=== PATIENT | female | born 1980 | race Caucasian/White ===

== ENCOUNTER 2022-08-17 05:00 | Emergency (ER) | payer OTHER ==
[~2022-08-17] VITALS: Ht 160 cm; Wt 70.3 kg
[2022-08-17 05:31] VITALS: BP 104/60
--- NOTE | 2022-08-17 05:34 | NUR ---
TO LOBBY A/W BED AMBULATORY
--- NOTE | 2022-08-17 06:38 | NUR ---
LABS DRAWN. PT TAKEN TO BED 12.
[2022-08-17 06:46] LABS: BASOPHILS # (AUTO) 0.1 K/uL (0.00-0.22); BASOPHILS % (AUTO) 1.3 % (0.0-2.0); EOSINOPHILS # (AUTO) 0.2 K/uL (0-0.4); EOSINOPHILS % (AUTO) 2.8 % (0.0-4.0); HEMATOCRIT 39.5 % (36-48); HEMOGLOBIN 13.6 g/dL (12.0-16.0); LYMPHOCYTES # (AUTO) 1.3 K/uL (2.5-16.5); LYMPHOCYTES % (AUTO) 21.2 % (20.5-51.1); MEAN CORPUSCULAR HEMOGLOBIN 33 pg (27-31); MEAN CORPUSCULAR HGB CONC 35 g/dL (33-37); MEAN CORPUSCULAR VOLUME 95.3 fL (80-94); MONOCYTES # (AUTO) 0.6 K/uL (0.8-1.0); MONOCYTES % (AUTO) 9.2 % (1.7-9.3); NEUTROPHILS % (AUTO) 65.5 % (42.2-75.2); PLATELET COUNT (AUTO) 268 K/uL (140-450); RED BLOOD CELL COUNT(AUTO) 4.14 MIL/uL (4.20-5.40); RED CELL DISTRIBUTION WIDTH 13.2 % (11.6-13.7); WHITE BLOOD COUNT (AUTO) 6.2 K/uL (4.8-10.8)
[2022-08-17 06:50] LABS: APPEARANCE,URINE CLEAR (CLEAR); BILIRUBIN,URINE NEGATIVE (NEGATIVE); BLOOD, URINE 3+ (NEGATIVE); COLOR,URINE YELLOW (YELLOW); LEUKOCYTE ESTERASE ,URINE 1+ (NEGATIVE); NITRITE, URINE NEGATIVE (NEGATIVE); UGLUCOSE NEGATIVE (NEGATIVE)
[2022-08-17 07:08] LABS: ALBUMIN 3.7 g/dL (3.4-5.0); ANION GAP 13.7 (8-16); CARBON DIOXIDE 26.1 mmol/L (21-32); POTASSIUM 3.8 mmol/L (3.5-5.1); TOTAL BILIRUBIN 0.4 mg/dL (0.0-1.0)
--- NOTE | 2022-08-17 07:20 | NUR ---
Assumed care from HANNAH Nolasco.
[2022-08-17 07:21] LABS: OTHER CASTS, URINE None Seen /LPF (None Seen)
--- NOTE | 2022-08-17 08:10 | NUR ---
Pt AOX4, able to make needs known. GCS15, no SOB. Denies N/V/D and pain at this time. Resp even and unlabored.
[2022-08-17] MEDS ORDERED: NITR100C7 PO (09:29)
[2022-08-17] MEDS ORDERED: IBUP-2213 PO (09:29)
[2022-08-17 10:37] VITALS: BP 128/74
--- NOTE | 2022-08-17 10:37 | NUR ---
Patient discharged with v/s stable. Written and verbal after care instructions given and explained with teachback. Patient alert, oriented and verbalized understanding of instructions. Ambulatory with steady gait. All questions addressed prior to discharge. ID band removed. Patient advised to follow up with PMD. Rx of macrobid/ibuprofen given. Patient educated on indication of medication including possible reaction and side effects. Opportunity to ask questions provided and answered.
== END 2022-08-17 10:37 | disposition home or self-care (01) ==
LOC: MED 05:00
DX: N39.0 Urinary tract infection, site not specified (principal)
CPT/HCPCS: 36415; 80053; 81001; 81025; 85025; 87086; 99284

== ENCOUNTER 2023-01-27 12:35 | Emergency (ER) | payer OTHER ==
[~2023-01-27] VITALS: Ht 157.5 cm; Wt 67.6 kg
[~2023-01-27 12:35] MED LIST: IBUP-2213 PO; NITR100C7 PO
[2023-01-27 13:00] VITALS: BP 105/59
[2023-01-27 13:23] VITALS: BP 125/73
--- NOTE | 2023-01-27 13:31 | NUR ---
Urine cup given for collection; patient to lobby
[2023-01-27 14:13] LABS: APPEARANCE,URINE CLEAR (CLEAR); BILIRUBIN,URINE NEGATIVE (NEGATIVE); BLOOD, URINE NEGATIVE (NEGATIVE); COLOR,URINE YELLOW (YELLOW); LEUKOCYTE ESTERASE ,URINE NEGATIVE (NEGATIVE); NITRITE, URINE NEGATIVE (NEGATIVE); PH,URINE 7.5 (5.0-9.0); UGLUCOSE NEGATIVE (NEGATIVE)
[2023-01-27] MEDS ORDERED: MORPHINE SULFATE 4 MG/ML SYR IVP ONE (15:15)
[2023-01-27] MEDS ORDERED: ONDANSETRON 4 MG/2 ML VIAL IVP ONE (15:15)
--- NOTE | 2023-01-27 15:37 | NUR ---
ASSUMED PATIENT CARE, NURSING ASSESSMENT COMPLETED.
[2023-01-27 15:42] LABS: BASOPHILS % (AUTO) 0.5 % (0.0-2.0); EOSINOPHILS # (AUTO) 0.3 K/uL (0-0.4); EOSINOPHILS % (AUTO) 4.1 % (0.0-4.0); HEMATOCRIT 33.2 % (36-48); HEMOGLOBIN 11.2 g/dL (12.0-16.0); LYMPHOCYTES # (AUTO) 1.3 K/uL (2.5-16.5); LYMPHOCYTES % (AUTO) 15.1 % (20.5-51.1); MEAN CORPUSCULAR HEMOGLOBIN 31 pg (27-31); MEAN CORPUSCULAR HGB CONC 34 g/dL (33-37); MEAN CORPUSCULAR VOLUME 93.1 fL (80-94); MONOCYTES # (AUTO) 0.6 K/uL (0.8-1.0); MONOCYTES % (AUTO) 7.4 % (1.7-9.3); NEUTROPHILS # (AUTO) 6.2 K/uL (1.8-7.7); NEUTROPHILS % (AUTO) 72.9 % (42.2-75.2); PLATELET COUNT (AUTO) 320 K/uL (140-450); RED BLOOD CELL COUNT(AUTO) 3.57 MIL/uL (4.20-5.40); RED CELL DISTRIBUTION WIDTH 12.4 % (11.6-13.7); WHITE BLOOD COUNT (AUTO) 8.5 K/uL (4.8-10.8)
[2023-01-27 16:02] LABS: ALBUMIN 3.7 g/dL (3.4-5.0); ANION GAP 12.1 (8-16); CARBON DIOXIDE 26.5 mmol/L (21-32); CREATININE 0.9 mg/dL (0.6-1.3); POTASSIUM 3.6 mmol/L (3.5-5.1); TOTAL BILIRUBIN 0.2 mg/dL (0.0-1.0)
--- NOTE | 2023-01-27 16:07 | NUR ---
PELVIC EXAM COMPLETED WITH CORRINE QUALITY COMPLIANCE COORDINATOR.
[2023-01-27] MEDS ORDERED: IBUP-2213 PO (17:06)
[2023-01-27] MEDS ORDERED: ONDA-188 PO (17:06)
[2023-01-27 17:16] VITALS: BP 115/70
--- NOTE | 2023-01-27 17:16 | NUR ---
Patient discharged with v/s stable. Written and verbal after care instructions given and explained. Patient alert, oriented and verbalized understanding of instructions. Ambulatory with steady gait. All questions addressed prior to discharge. ID band removed. Patient advised to follow up with PMD. Rx of MOTRIN, ZOFRAN given. Patient educated on indication of medication including possible reaction and side effects. Opportunity to ask questions provided and answered.
== END 2023-01-27 17:16 | disposition home or self-care (01) ==
LOC: MED 12:35
DX: N93.9 Abnormal uterine and vaginal bleeding, unspecified (principal); R10.2 Pelvic and perineal pain; Z79.899 Other long term (current) drug therapy; Z79.2 Long term (current) use of antibiotics; Z79.1 Long term (current) use of non-steroidal anti-inflammatories (NSAID)
CPT/HCPCS: 36415; 76830; 80053; 81003; 81025; 85025; 87210; 87491; 96374; 96375; 99285; J2270; J2405; Q0092

== ENCOUNTER 2023-05-03 16:20 | Emergency (ER) | payer OTHER ==
[~2023-05-03] VITALS: Ht 162.6 cm; Wt 65.8 kg
[~2023-05-03 16:20] MED LIST changes: +ONDA-188 PO
[2023-05-03 16:27] VITALS: BP 129/86
[2023-05-03] MEDS ORDERED: MORPHINE SULFATE 2 MG/ML SYR IVP PRN (17:05)
[2023-05-03] MEDS ORDERED: NACL 0.9% 1,000 ML IV ONE (17:05)
[2023-05-03 17:35] LABS: BASOPHILS # (AUTO) 0.1 K/uL (0.00-0.22); BASOPHILS % (AUTO) 1.2 % (0.0-2.0); EOSINOPHILS # (AUTO) 0.5 K/uL (0-0.4); EOSINOPHILS % (AUTO) 5.7 % (0.0-4.0); HEMATOCRIT 30.6 % (36-48); HEMOGLOBIN 9.8 g/dL (12.0-16.0); LYMPHOCYTES # (AUTO) 1.5 K/uL (2.5-16.5); LYMPHOCYTES % (AUTO) 18.7 % (20.5-51.1); MEAN CORPUSCULAR HEMOGLOBIN 24 pg (27-31); MEAN CORPUSCULAR HGB CONC 32 g/dL (33-37); MEAN CORPUSCULAR VOLUME 75.4 fL (80-94); MONOCYTES # (AUTO) 0.7 K/uL (0.8-1.0); MONOCYTES % (AUTO) 8.2 % (1.7-9.3); NEUTROPHILS # (AUTO) 5.3 K/uL (1.8-7.7); NEUTROPHILS % (AUTO) 66.2 % (42.2-75.2); PLATELET COUNT (AUTO) 469 K/uL (140-450); RED BLOOD CELL COUNT(AUTO) 4.06 MIL/uL (4.20-5.40); RED CELL DISTRIBUTION WIDTH 16.8 % (11.6-13.7)
[2023-05-03 17:55] LABS: ALBUMIN 3.6 g/dL (3.4-5.0); ANION GAP 13.8 (8-16); CARBON DIOXIDE 26.5 mmol/L (21-32); CREATININE 0.7 mg/dL (0.6-1.3); POTASSIUM 4.3 mmol/L (3.5-5.1); TOTAL BILIRUBIN 0.3 mg/dL (0.0-1.0)
[2023-05-03] MEDS ORDERED: POLY17PD46 PO (19:33)
[2023-05-03 20:00] VITALS: BP 114/65
[2023-05-03 20:00] LABS: APPEARANCE,URINE CLEAR (CLEAR); BILIRUBIN,URINE NEGATIVE (NEGATIVE); BLOOD, URINE 3+ (NEGATIVE); COLOR,URINE YELLOW (YELLOW); LEUKOCYTE ESTERASE ,URINE TRACE (NEGATIVE); NITRITE, URINE NEGATIVE (NEGATIVE); PH,URINE 8.5 (5.0-9.0); UGLUCOSE NEGATIVE (NEGATIVE)
--- NOTE | 2023-05-03 20:00 | NUR ---
Patient report received from Ran YOUNG. Patient comfortable and safe in bed. No complaints of pain or signs of distress. Patient being monitored at this time, connected to monitor. VS stable at this time.
[2023-05-03 20:21] LABS: RBC,URINE 11-20 (MOD) /HPF (0-5); RED BLOOD CELL CASTS,URINE 0-10 /LPF (None Seen)
[2023-05-03] MEDS ORDERED: AMOX-999 PO (20:33)
--- NOTE | 2023-05-03 20:46 | NUR ---
IV removed, catheter intact and site benign. Applied folded 4x4 gauze and tape to stop bleeding.
--- NOTE | 2023-05-03 20:49 | NUR ---
Patient discharged. Written and verbal after care instructions given and explained. Patient alert, oriented and verbalized understanding of instructions. Ambulatory with steady gait. All questions addressed prior to discharge. ID band removed. Patient advised to follow up with PMD. Rx of Augmentin 500-125 and Miralax given. Patient educated on indication of medication including possible reaction and side effects. Opportunity to ask questions provided and answered.
== END 2023-05-03 20:49 | disposition home or self-care (01) ==
LOC: MED 16:20
DX: R10.30 Lower abdominal pain, unspecified (principal); Z79.899 Other long term (current) drug therapy
CPT/HCPCS: 36415; 74177; 76856; 80053; 81001; 83690; 84703; 85025; 93976; 96361; 96374; 99285; J2270; J7030; Q0092; Q9967

== ENCOUNTER 2023-06-16 21:20 | Inpatient (IN) | payer OTHER ==
[~2023-06-16] VITALS: Ht 157.5 cm; Wt 62.6 kg
[~2023-06-16 21:20] MED LIST changes: +AMOX-999 PO; +POLY17PD46 PO
[2023-06-16 21:53] VITALS: BP 116/75; PULSE 83; RESP 16; TEMP 97.8; O2SAT 100
--- NOTE | 2023-06-16 21:53 | NUR ---
TO LOBBY A/W BED AMBULATORY
--- NOTE | 2023-06-16 21:59 | NUR ---
PATIENT PRESENTS TO ED WITH C/O VAGINAL BLEEDING FOR A FEW DAYS, THAT HAS RECENTLY GOTTEN WORSE. PT STATES SHE PASSED BLOOD CLOTS TODAY WHILE AT WORK. DENIES N/V/D; SKIN IS PINK/WARM/DRY; AAOX4 WITH EVEN AND STEADY GAIT; LUNGS CLEAR BL; HR EVEN AND REGULAR; PT DENIES ANY FEVER, CP, SOB, OR COUGH AT THIS TIME; PATIENT STATES PAIN OF 10/10 AT THIS TIME; DESCRIBES PAIN CRAMPING. VSS; PATIENT POSITIONED FOR COMFORT; HOB ELEVATED; BEDRAILS UP X2; BED DOWN. ER MD MADE AWARE OF PT STATUS.
[2023-06-16] MEDS ORDERED: KETOROLAC 15 MG/ML VIAL IVP ONE (22:25)
[2023-06-16] MEDS ORDERED: ONDANSETRON 4 MG/2 ML VIAL IVP ONE (22:25)
[2023-06-16] MEDS ORDERED: NACL 0.9% 1,000 ML IV ONE (22:25)
[2023-06-16] MEDS ORDERED: MORPHINE SULFATE 4 MG/ML SYR IVP ONE (22:25)
[2023-06-16 22:34] LABS: BASOPHILS # (AUTO) 0.1 K/uL (0.00-0.22); BASOPHILS % (AUTO) 1.1 % (0.0-2.0); EOSINOPHILS # (AUTO) 0.4 K/uL (0-0.4); EOSINOPHILS % (AUTO) 6.6 % (0.0-4.0); LYMPHOCYTES # (AUTO) 1.8 K/uL (2.5-16.5); LYMPHOCYTES % (AUTO) 28.1 % (20.5-51.1); MEAN CORPUSCULAR HEMOGLOBIN 23 pg (27-31); MEAN CORPUSCULAR HGB CONC 32 g/dL (33-37); MEAN CORPUSCULAR VOLUME 71.7 fL (80-94); MONOCYTES # (AUTO) 0.7 K/uL (0.8-1.0); MONOCYTES % (AUTO) 11.1 % (1.7-9.3); NEUTROPHILS # (AUTO) 3.4 K/uL (1.8-7.7); NEUTROPHILS % (AUTO) 53.1 % (42.2-75.2); PLATELET COUNT (AUTO) 380 K/uL (140-450); RED BLOOD CELL COUNT(AUTO) 2.75 MIL/uL (4.20-5.40); RED CELL DISTRIBUTION WIDTH 18.2 % (11.6-13.7); WHITE BLOOD COUNT (AUTO) 6.5 K/uL (4.8-10.8)
[2023-06-16 22:37] LABS: HEMATOCRIT 19.7 % (36-48); HEMOGLOBIN 6.3 g/dL (12.0-16.0)
[2023-06-16 22:49] LABS: CARBON DIOXIDE 28.5 mmol/L (21-32); CREATININE 0.8 mg/dL (0.6-1.3); POTASSIUM 3.5 mmol/L (3.5-5.1); TOTAL BILIRUBIN 0.3 mg/dL (0.0-1.0)
[2023-06-16 23:04] LABS: BILIRUBIN,URINE NEGATIVE (NEGATIVE); BLOOD, URINE 3+ (NEGATIVE); LEUKOCYTE ESTERASE ,URINE 1+ (NEGATIVE); NITRITE, URINE NEGATIVE (NEGATIVE); PH,URINE 5.5 (5.0-9.0); UGLUCOSE NEGATIVE (NEGATIVE)
[2023-06-16 23:08] LABS: APPEARANCE,URINE TURBID (CLEAR); COLOR,URINE AMBER (YELLOW)
[2023-06-16 23:12] LABS: RBC,URINE TOO NUMEROUS TO COUN /HPF (0-5)
[2023-06-17] VITALS (7 sets, daily range): BP systolic 99–114; BP diastolic 38–65; PULSE 64–88; RESP 18–20; TEMP 97.9–98.7; O2SAT 97–99
--- NOTE | 2023-06-17 00:20 | NUR ---
Pt ambulated to restroom.
--- NOTE | 2023-06-17 00:25 | NUR ---
Consent signed per patient agreeing to administration of blood. Blood has been type and crossmatched. Blood sent from blood bank. Information on unit of blood checked against patient wristband at bedside by two nurses. All information matches. Patient or responsible democrat informed of potential complications associated with blood transfusion. Informed of possible transfusion reaction symptoms. Aware of need to notify nurse at once of itching, shortness of breath, flushing, feeling of impending doom, or other symptoms not previously present. Vital signs taken within 5 minutes prior to initiation of transfusion. RN will remain with patient for first 15 minutes of transfusion at which time vital signs will be re-assessed.
[2023-06-17] MEDS ORDERED: LORazepam 1 MG TAB PO PRN (00:40)
[2023-06-17] MEDS ORDERED: ACETAMINOPHEN 325 MG TAB PO PRN (00:40)
[2023-06-17] MEDS ORDERED: ONDANSETRON 4 MG/2 ML VIAL IVP PRN (00:40)
[2023-06-17] MEDS ORDERED: ZOLPIDEM 5 MG TAB PO PRN (00:40)
--- NOTE | 2023-06-17 00:40 | NUR ---
Pt did not experience any transfusion reaction symptoms. Denies itching, shortness of breath, flushing, feeling of impending doom, or other symptoms. Improvement in pt blood pressure and color noted.
--- NOTE | 2023-06-17 01:23 | NUR ---
Patient will be admitted to care of [facility]. Admited to Med Surg. Will go to room 12A. Belongings list completed. Report to HANNAH Herring.
--- NOTE | 2023-06-17 01:37 | NUR ---
RECEIVED PT FROM ER NURSE FOR CONTINUITY OF CARE.PT IS AOX4 , NO COMPLAIN OF PAIN AT THIS TIME. BLOOD TRANSFUSION ONGOING TOLERATING WELL. WILL CONTINUE TO MONITOR
--- NOTE | 2023-06-17 02:40 | NUR ---
BLOOD TRANSFUSION ENDED, PT TOLERATED WELL , NO ADVERSE REACTIONS NOTED
[2023-06-17] MEDS ORDERED: cefTRIAXone 1,000 MG VIAL ONE (03:55)
[2023-06-17 05:05] LABS: BASOPHILS % (AUTO) 0.6 % (0.0-2.0); EOSINOPHILS # (AUTO) 0.5 K/uL (0-0.4); EOSINOPHILS % (AUTO) 7.9 % (0.0-4.0); HEMATOCRIT 23.5 % (36-48); HEMOGLOBIN 7.5 g/dL (12.0-16.0); LYMPHOCYTES # (AUTO) 1.9 K/uL (2.5-16.5); LYMPHOCYTES % (AUTO) 28.8 % (20.5-51.1); MEAN CORPUSCULAR HEMOGLOBIN 24 pg (27-31); MEAN CORPUSCULAR HGB CONC 32 g/dL (33-37); MEAN CORPUSCULAR VOLUME 75.2 fL (80-94); MONOCYTES # (AUTO) 0.6 K/uL (0.8-1.0); MONOCYTES % (AUTO) 9.3 % (1.7-9.3); NEUTROPHILS # (AUTO) 3.4 K/uL (1.8-7.7); NEUTROPHILS % (AUTO) 53.4 % (42.2-75.2); PLATELET COUNT (AUTO) 314 K/uL (140-450); RED BLOOD CELL COUNT(AUTO) 3.12 MIL/uL (4.20-5.40); RED CELL DISTRIBUTION WIDTH 19.3 % (11.6-13.7); WHITE BLOOD COUNT (AUTO) 6.4 K/uL (4.8-10.8)
--- NOTE | 2023-06-17 07:20 | NUR ---
endorsed pt to am nurse for continuity of care. pt is stable
--- NOTE | 2023-06-17 07:30 | NUR ---
receive the patient from the fisher trawl line aaron Herring in rm 120 A aox4 with admitting diagnosis of acute chronic anemia , had PRBC infusion last night for hemogblin of 6.3 , today it is 7.5 will continue to monitor
[2023-06-17] MEDS: DOCUSATE SODIUM 100 MG GELCAP PO SCH (08:32)
--- NOTE | 2023-06-17 08:45 | NUR ---
PATIENT HAS BEEN SCREENED AND CATEGORIZED LOW NUTRITION RISK. PATIENT WILL BE SEEN WITHIN 7 DAYS OF ADMISSION. 06/24/[address]
[2023-06-17] MEDS: HYDROcodone/APAP 5/325 MG 1 TAB TAB PO PRN ×2 (09:03→14:59)
[2023-06-17] MEDS: FERROUS SULFATE 325 MG TABEC PO SCH (09:05)
--- NOTE | 2023-06-17 14:00 | NUR ---
PATIENT ON BED REST , A/OX2 , VSS , ON IV FLUID DW 5% 40CC/H , WITH NASAL FEEDING TUBE ELENO 20XCC/H , TOLERATED , NO RESIDUAL , POTASSIUM LOW REPLACED , SAFETY PROACTION ON PLACE SIDE RAILS UP BY TWO , BED IN LOWER POSITION , CALL LIGHT WITHIN REACH DRESSING DONE , ON PURWICK SUCTION FOR , NO BOWEL MOVEMENT ON NASAL CANNULA O2 2 LITER PATIENT STILL UNDER OBSERVE . Addendum: 06/17/23 at 1440 by KEARA YATES RN PATIENT A/OX4 , VSS , AMBULATORY , SKIN INTACT , SAFETY PROACTION ON PLACE STILL HAS VAGINAL BLEEDING WITH CLOTS , WAITING FOR GYNO CONSOLUTE PATIENT ON REGULAR DIET , STILL UNDER OBSERVE .
[2023-06-17] MEDS: IBUPROFEN 800 MG TAB PO PRN (18:55)
--- NOTE | 2023-06-17 18:58 | NUR ---
will endorse to overnight cashier rn for continuity of care . for OB-SHAPER HAND consult , pain mgt
--- NOTE | 2023-06-17 20:00 | NUR ---
ROUNDS , PT SAID SHE HAS STILL VAG. BLEEDING , GIVING INSTRUCTION TO HER EVERY TIME SHE CHANGE HER PERINEAL PAD I HAVE TO LOOK IT TO MONITOR HER VAGINAL BLEEDING , PT. VERBALIZES UNDERSTANDING . CALL LIGHT WITHIN REACH , DENIES PAIN AT THIS TIME .
--- NOTE | 2023-06-17 23:08 | NUR ---
ROUNDS , BP RE CHECK 99 / 60 , NO ACTIVE VAG BLEEDING AT THIS TIME , HR 88 , NO COMPLAIN MADE . CALL LIGHT WITHIN REACH .
--- NOTE | 2023-06-18 00:02 | NUR ---
HIT THE CALL LIGHT , C/O PAIN ON IV SITE , INFILTRATED IV SITE , WILL REMOVE THE IV NEEDLE AND WILL RE INSERT NEW ONE .
--- NOTE | 2023-06-18 00:03 | NUR ---
REMOVED IV NEEDLE , NEEDLE INTACT , MINIMAL BLEEDING , WILL CONT. TO MONITOR .
--- NOTE | 2023-06-18 00:17 | NUR ---
C/O PAIN ON PREVIOULY IV SITE - WILL MEDICATE . PT . REFUSED FOR IV RE INSERTION , SHE SAID SHE HAS MUCH BLEEDING AT THIS TIME . AND SHE REQUESTING LET HER TO REST FOR AWHILE . GIVING INSTRUCTION TO THE PT SHE IS ON BLEEDING MONITORING SO THAT SHE HAVE AN IV ACCESS , BUT THE PT . STILL REFUSED . I EDUCATES THE PT SHE HAS SCHED. CBC THIS MORNING ONCE THE RESULT OF HEMOGLOBIN IS LOW SHE HAVE IV ACCESS . PT SAID LET SEE THE RESULT OF BLOOD TEST THIS AM BEFORE I DECIDE FOR ANOTHER NEEDLE INSERTION . - WILL CONT. TO MONITOR , WILL INFORM CHARGE NURSE YESENIA . Addendum: 06/18/23 at 0611 by Yi Quinn RN [id number] WHEN THE PT REFUSING FOR IV NEEDLE RE INSERTION , THE ICU NURSE SIMONE IS IN AT BEDSIDE WHEN THE PT IS REFUSING THE IV NEEDLE RE INSERTION .
--- NOTE | 2023-06-18 02:00 | NUR ---
INFORMED CHARGE NURSE YESENIA ABOUT PT . REFUSAL FOR IV RE INSERTION , WILL CONT. TO MONITOR .
[2023-06-18 04:00] VITALS: BP 109/44; PULSE 67; RESP 18; TEMP 98; O2SAT 99
--- NOTE | 2023-06-18 04:21 | NUR ---
ROUNDS , NO S/SX OF ACUTE DISTRESS NOTED AT THIS TIME , NO COMPLAIN MADE , WILL CONT. TO MONITOR .
[2023-06-18 04:37] LABS: BASOPHILS % (AUTO) 0.7 % (0.0-2.0); EOSINOPHILS # (AUTO) 0.7 K/uL (0-0.4); EOSINOPHILS % (AUTO) 10.5 % (0.0-4.0); HEMATOCRIT 21.9 % (36-48); HEMOGLOBIN 7.1 g/dL (12.0-16.0); LYMPHOCYTES # (AUTO) 1.5 K/uL (2.5-16.5); LYMPHOCYTES % (AUTO) 22.4 % (20.5-51.1); MEAN CORPUSCULAR HEMOGLOBIN 24 pg (27-31); MEAN CORPUSCULAR HGB CONC 33 g/dL (33-37); MEAN CORPUSCULAR VOLUME 74.5 fL (80-94); MONOCYTES # (AUTO) 0.6 K/uL (0.8-1.0); MONOCYTES % (AUTO) 8.7 % (1.7-9.3); NEUTROPHILS # (AUTO) 3.9 K/uL (1.8-7.7); NEUTROPHILS % (AUTO) 57.7 % (42.2-75.2); PLATELET COUNT (AUTO) 331 K/uL (140-450); RED BLOOD CELL COUNT(AUTO) 2.94 MIL/uL (4.20-5.40); RED CELL DISTRIBUTION WIDTH 19.1 % (11.6-13.7); WHITE BLOOD COUNT (AUTO) 6.8 K/uL (4.8-10.8)
[2023-06-18 05:27] LABS: ALBUMIN 2.7 g/dL (3.4-5.0); ANION GAP 8.7 (8-16); CARBON DIOXIDE 30.2 mmol/L (21-32); CREATININE 0.8 mg/dL (0.6-1.3); POTASSIUM 3.9 mmol/L (3.5-5.1); TOTAL BILIRUBIN 0.2 mg/dL (0.0-1.0)
--- NOTE | 2023-06-18 05:42 | NUR ---
PAGED DR. VASQUEZ FOR CRITICAL VALUE OF SERUM NA 157 . CHARGE NURSE INFORMED .
--- NOTE | 2023-06-18 06:06 | NUR ---
REMINDS PT. SHE HAS ROCEPHIN TIV THIS AM , REMINDS HER IT IS INTRAVENOUSLY AND SHE HAVE AN IV ACCESS , BUT PT SAID NEEDLE INSERTION WILL BE LATTER BEACUSE SHE WANTS TO REST FOR AWHILE . WILL INFORM CHARGE NURSE YESENIA .
--- NOTE | 2023-06-18 06:20 | NUR ---
re paged dr. franco , inform charge nurse winter Joya
--- NOTE | 2023-06-18 06:35 | NUR ---
dr. amin responded , he said stop ivf w/ nss , - i told dr. franco pt. has no ivf , only on saline lock , dr Toan franco said ok , no further orders . Addendum: 06/18/23 at 0735 by Yi Quinn RN the above word brennan is an error entry , instead of Rafael morocho
--- NOTE | 2023-06-18 07:25 | NUR ---
RECEIVED REPORT FROM LOSS PREVENTION AGENT NURSE FOR CONTINUITY OF CARE. PT IS AWAKE, ALERT AND ORIENTED X4. CURRENTLY STABLE ON ROOM AIR, REPORTS MINOR CRAMPING PAIN. AMBULATORY AND CONTINENT. NO IV ACCESS AT THIS TIME. WILL ATTEMPT TO START NEW IV. POC DISCUSSED, WHITE BOARD UPDATED, WILL MAKE FREQUENT ROUNDS.
--- NOTE | 2023-06-18 07:30 | NUR ---
endorsed pt for cont. of care , awake . no active vag. bleeding noted .
[2023-06-18 08:00] VITALS: BP 109/53; PULSE 80; RESP 18; TEMP 98.3; O2SAT 99
--- NOTE | 2023-06-18 09:05 | NUR ---
Restarted on LEFT HAND. Successful after 1 attempts. Resumed current IVF of D5 and regulated @ 75ML per hour. Will observe for any signs of infiltration.
[2023-06-18] MEDS: medroxyPROGESTERone 10 MG TAB PO SCH (09:22)
[2023-06-18] MEDS: DOCUSATE SODIUM 100 MG GELCAP PO SCH (09:22)
[2023-06-18] MEDS: FERROUS SULFATE 325 MG TABEC PO SCH (09:24)
[2023-06-18] MEDS: DEXTROSE 5% 1,000 ML IV SCH ×2 (09:38→22:20)
--- NOTE | 2023-06-18 11:40 | NUR ---
PRE VITAL SIGNS TAKEN, ALL WNL. BEGAN ADMINISTERING ONE UNIT PRBC. WILL STAY WITH PATIENT FOR 15 MINUTES AND OBSERVE.
--- NOTE | 2023-06-18 11:56 | NUR ---
INTRA INFUSION VITAL SIGNS TAKEN POST 15 MINUTES. ALL WNL. BLOOD INFUSION RATE INCREASED TO 100 ML/HR.
--- NOTE | 2023-06-18 12:00 | NUR ---
Complaining of pain to IV site. Restarted on LEFT WRIST. Successful after 1 attempts. Resumed current IVF. Will observe for any signs of infiltration.
[2023-06-18] MEDS: HYDROcodone/APAP 5/325 MG 1 TAB TAB PO PRN (12:07)
--- NOTE | 2023-06-18 15:14 | NUR ---
BLOOD INFUSION COMPLETE. VITAL SIGNS ALL WNL. Addendum: 06/18/23 at 2209 by Rogelio Bonilla LVN LVN NO ADVERSE REACTIONS.
[2023-06-18 16:00] VITALS: BP 101/67; PULSE 65; RESP 18; TEMP 98.2; O2SAT 99
[2023-06-18 20:00] VITALS: PULSE 94; RESP 18; TEMP 97.8; O2SAT 98
--- NOTE | 2023-06-18 20:00 | NUR ---
Patient's Plan of Care was discussed and reviewed with EUGENE: HILARIA
--- NOTE | 2023-06-18 20:01 | NUR ---
ENDORSED TO PILE DRIVER ENGINEER NURSE FOR CONTINUITY OF CARE. PT IS STABLE AT THIS TIME.
--- NOTE | 2023-06-18 20:02 | NUR ---
RECEIVED ENDORSEMENT FROM ALEJANDRO Smith LVN, PATIENT WAS IN BED WITH FAMILY AT BEDSIDE. PATIENT COMPLAINED OF CONSTIPATION. SHE WANTED PAIN MEDICATION. NURSING GAVE PATIENT EDUCATION ON NARCOTICS AND THE SIDE EFFECTS OF CONSTIPATION. PATIENT WAS ADVISED THAT NURSING WILL INFORM THE MD FOR MEDICATION FOR CONSTIPATION. ALL NEEDS WERE MET AT THIS TIME. NO NOTED RESPIRATORY DISTRESS. CHEST NOTED RISING AND FALLING WITHOUT INCIDENT. PATIENT KEPT CLEAN AND DRY AT THIS TIME. SIDE RAILS UP X 2 FOR SAFETY AND ADJUSTMENT. CALL LIGHT WITHIN REACH FOR ALL ASSISTANCE. [email or web address]
[2023-06-18] MEDS ORDERED: LACTULOSE 20 GM/30 ML UDC PO ONE (21:40)
--- NOTE | 2023-06-18 22:00 | NUR ---
PATIENT DEMANDED THAT IV BE REMOVED D/T PAIN. PATIENT WAS IN THE HALLWAY, AND WAS ASKED TO RETURN TO HER ROOM TO HAVE THE IV REMOVED. WHEN PATIENT RETURNED TO HER ROOM IV WAS REMOVED. PATIENT REQUESTED FOR ONE HOUR BEFORE STARTING ANOTHER IV. PATIENT WAS EDUCATED ON STAYING HYDRATED TO ASSIST WITH BOWELS AND IV MEDICATION ACCESS. SIDE RAILS UP X 2 CALL LIGHT WITHIN REACH. [email or web address]
[2023-06-18] MEDS ORDERED: LACTULOSE 20 GM/30 ML UDC ONE (22:55)
--- NOTE | 2023-06-18 23:47 | NUR ---
NURSING WAS ABLE TO GAIN IV ACCESS IN RIGHT UPPER ARM, AND PATIENT INSISTED AGAIN TO HAVE IV REMOVED. CLAIMING IT WILL BEND AND CAUSE PAIN. MD WAS NOTIFIED. PATIENT REFUSED IV ACCESS. EDUCATION WAS GIVEN OF THE BENEFITS OF HAVING IV ACCESS AND PATIENT STILL REFUSED. NURSING ENCOURAGED PATIENT TO INCREASE ORAL FLUID INTAKE. PATIENT RELUCTANTLY AGREED. SIDE RAILS UP CALL LIGHT WITHIN REACH FOR ASSISTANCE. [email or web address]
--- NOTE | 2023-06-19 01:56 | NUR ---
PATIENT NOTED IN BED ASLEEP. NO S/S OF PAIN/DISCOMFORT. NO S/S OF RESPIRATORY DISTRESS. SIDE RAILS UP X 2 CALL LIGHT WITHIN REACH. [email or web address]
--- NOTE | 2023-06-19 03:40 | NUR ---
PATIENT WAS ASLEEP. CHEST WAS RISING AND FALLING WITHOUT INCIDENT. ALL NEEDS MET. PATIENT REMAINS CLEAN AND DRY. NO S/S OF PAIN/DISCOMFORT. SIDE RAILS UP X 3 CALL LIGHT WITHIN REACH. [email or web address]
[2023-06-19 04:00] VITALS: BP 111/56; PULSE 72; RESP 18; TEMP 98.2; O2SAT 100
--- NOTE | 2023-06-19 05:13 | NUR ---
PATIENT WAS ABLE TO ALLOW NURSING TO TAKE VITAL SIGNS. NURSING REMINDED PATIENT TO TRY TO ALLOW AM SHIFT TO START IV BECAUSE SHE DID RECEIVE BLOOD RECENTLY AND IF SHE NEEDS MORE WE DO NOT HAVE IV ACCESS. PATIENT UNDERSTOOD AND STILL REFUSED. PATIENT STATED SHE HAD A SMALL BOWEL MOVEMENT BUT CHANGE HEAR HER STOMACH MAKING NOISE. PATIENT BOWELS SOUNDS ARE ACTIVE X 4 QUADRANTS. SIDE RAILS UP CALL LIGHT WITHIN REACH. [email or web address]
[2023-06-19 06:11] LABS: BASOPHILS # (AUTO) 0.1 K/uL (0.00-0.22); BASOPHILS % (AUTO) 0.6 % (0.0-2.0); EOSINOPHILS # (AUTO) 0.5 K/uL (0-0.4); EOSINOPHILS % (AUTO) 5.9 % (0.0-4.0); HEMOGLOBIN 9.3 g/dL (12.0-16.0); LYMPHOCYTES # (AUTO) 1.7 K/uL (2.5-16.5); LYMPHOCYTES % (AUTO) 18.8 % (20.5-51.1); MEAN CORPUSCULAR HEMOGLOBIN 26 pg (27-31); MEAN CORPUSCULAR HGB CONC 33 g/dL (33-37); MEAN CORPUSCULAR VOLUME 77.6 fL (80-94); MONOCYTES # (AUTO) 0.6 K/uL (0.8-1.0); MONOCYTES % (AUTO) 6.8 % (1.7-9.3); NEUTROPHILS # (AUTO) 6.1 K/uL (1.8-7.7); NEUTROPHILS % (AUTO) 67.9 % (42.2-75.2); PLATELET COUNT (AUTO) 371 K/uL (140-450); RED BLOOD CELL COUNT(AUTO) 3.61 MIL/uL (4.20-5.40); RED CELL DISTRIBUTION WIDTH 20.7 % (11.6-13.7); WHITE BLOOD COUNT (AUTO) 8.9 K/uL (4.8-10.8)
--- NOTE | 2023-06-19 07:03 | NUR ---
ENDORSED CARE TO BRENDA YOUNG, PATIENT WAS STABLE DURING THE CHANGE OF SHIFT. [email or web address]
--- NOTE | 2023-06-19 07:04 | NUR ---
RECEIVED BEDSIDE REPORT FROM NIGHTSHIFT NURSE. PT IS ASLEEP IN BED, WOKE TO NAME AND TOUCH. PT IS STABLE, NO SIGNS OF DISTRESS, NO REPORTS OF PAIN/DISCOMFORT. PT CALL LIGHT IS WITHIN REACH. NO FURTHER NEEDS ARE TO BE MET AT THIS TIME. WILL CONTINUE WITH PT CARE.
[2023-06-19 07:44] LABS: ALBUMIN 3.1 g/dL (3.4-5.0); ANION GAP 11.7 (8-16); CARBON DIOXIDE 26.9 mmol/L (21-32); CREATININE 0.8 mg/dL (0.6-1.3); MAGNESIUM 2.1 mg/dL (1.8-2.4); POTASSIUM 3.6 mmol/L (3.5-5.1); TOTAL BILIRUBIN 0.4 mg/dL (0.0-1.0)
[2023-06-19] MEDS: medroxyPROGESTERone 10 MG TAB PO SCH (09:18)
[2023-06-19] MEDS: DOCUSATE SODIUM 100 MG GELCAP PO SCH (09:21)
[2023-06-19] MEDS: FERROUS SULFATE 325 MG TABEC PO SCH (09:21)
[2023-06-19] MEDS: IBUPROFEN 800 MG TAB PO PRN (10:05)
[2023-06-19] MEDS ORDERED: FER325 PO (10:52)
[2023-06-19] MEDS ORDERED: MEDR10TA33 PO (10:52)
[2023-06-19] MEDS: DEXTROSE 5% 1,000 ML IV SCH (11:40)
[2023-06-19 13:00] VITALS: BP 113/58; PULSE 69; RESP 16; TEMP 98.2
--- NOTE | 2023-06-19 15:00 | NUR ---
PT INFORMED OF DISCHARGE ORDER. EDUCATION PROVIDED. ID BAND REMOVED, NO IV ON PT. PT STABLE UPON LEAVING. PICKED UP BY FAMILY.
== END 2023-06-19 14:56 | disposition home or self-care (01) | DRG 532 ==
LOC: MED 21:20 → OBSVTOIN 06-17 00:42 → MMU 06-17 00:42 → MTU 06-17 00:51
PROVIDERS: ADMIT Internal Medicine; ATTEND Internal Medicine
PROC: 30233N1 Transfusion of Nonautologous Red Blood Cells into Peripheral Vein, Percutaneous Approach (ICD-10-PCS; principal; 2023-06-17)
DX: N92.0 Excessive and frequent menstruation with regular cycle (principal); E87.0 Hyperosmolality and hypernatremia; E44.0 Moderate protein-calorie malnutrition; D62 Acute posthemorrhagic anemia; N83.202 Unspecified ovarian cyst, left side; Z79.899 Other long term (current) drug therapy; Z79.1 Long term (current) use of non-steroidal anti-inflammatories (NSAID); Z68.25 Body mass index [BMI] 25.0-25.9, adult; N39.0 Urinary tract infection, site not specified
CPT/HCPCS: 36415; 76830; 80053; 81001; 82728; 82948; 83540; 83690; 83735; 84295; 85025; 86886; 86900; 86901; 86920; 87040; 87081; 87086; J0696; J1885; J2270; J2405; J7060; P9016; Q0092